=== PATIENT | male | born 1985 | race Caucasian/White ===

== ENCOUNTER 2021-09-25 07:12 | Emergency (ER) | payer OTHER ==
[2021-09-25 07:29] LABS: BASOPHIL 1.2 % (0-2); HCT 46.7 % (42.0-52.0); HGB 15.4 g/dl (13.2-18.0); LYMPHOCYTE 23.6 % (15-48); MCH 28.8 pg (25.0-31.0); MCV 87.5 fL (78.0-100.0); MONOCYTE 10.6 % (0-12); MPV 10.4 fL (6.0-9.5); NEUTROPHIL 60.1 % (41-80); NRBC 0; PLT 364 K/uL (150-400); RBC 5.34 M/uL (4.70-6.00); RDW 12.7 % (11.5-14.0); WBC 11.8 K/uL (4.0-10.5)
[2021-09-25 07:40] LABS: INR 1.08 (0.9-1.2); PROTHROMBIN TIME 13.4 SECONDS (11.8-13.4)
[2021-09-25 07:41] LABS: PTT 42.8 SECONDS (24.4-34.7)
[2021-09-25 07:56] LABS: ALBUMIN 3.9 g/dL (3.4-5.0); BILIRUBIN - TOTAL 0.3 mg/dL (0.2-1.0); BUN/CREAT RATIO (CALC) 12.9 RATIO; CREATININE 0.85 mg/dL (0.67-1.17); GLOBULIN (CALCULATION) 3.9 g/dL; POTASSIUM 3.8 mmol/L (3.5-5.1); TOTAL PROTEIN 7.8 g/dL (6.4-8.2)
[2021-09-25 08:42] LABS: BILIRUBIN NEGATIVE (NEGATIVE); BLOOD NEGATIVE Ery/uL (NEGATIVE); CLARITY CLEAR (CLEAR); COLOR YELLOW (YELLOW); GLUCOSE (U) NORMAL (NORMAL); LEUKOCYTES NEGATIVE Leu/uL (NEGATIVE); NITRITE NEGATIVE (NEGATIVE); PROTEIN TRACE (LOW) mg/dL (NEGATIVE); SPECIFIC GRAVITY 1.015 (1.001-1.030); UROBILINOGEN 0.2 mg/dL (0.2-1.0)
[2021-09-25 08:50] LABS: BACTERIA TRACE; SQUAMOUS EPITHELIAL CELLS RARE; URINARY RBC RARE; URINARY WBC RARE
== END 2021-09-25 20:54 | disposition other institution (70) ==
LOC: FER 07:12
PROVIDERS: Emergency Medicine
DX: I48.91 Unspecified atrial fibrillation (principal); F17.210 Nicotine dependence, cigarettes, uncomplicated; Z88.8 Allergy status to other drugs, medicaments and biological substances; Z20.822 Contact with and (suspected) exposure to COVID-19
CPT/HCPCS: 36415; 71045; 80053; 81001; 82553; 84443; 84484; 85025; 85379; 85610; 85730; 93005; J2270; J2405; J7040; U0002